=== PATIENT | female | born 1945 | race Caucasian/White ===

== ENCOUNTER → 2019-09-22 | Outpatient (REF) | LOC: M LAB LCGH 14:52 | PROVIDERS: ATTEND Physician Assistant | DX: L72.0 Epidermal cyst (principal) ==

== ENCOUNTER → 2020-05-24 | Outpatient (REF) | payer MEDICARE | LOC: M LAB REF 17:53 | PROVIDERS: ATTEND Physician Assistant | DX: D04.62 Carcinoma in situ of skin of left upper limb, including shoulder (principal) | CPT/HCPCS: 11102; 17000; 17003; 88305; G0463 ==

== ENCOUNTER → 2020-08-02 | Outpatient (REF) | payer MEDICARE | LOC: M LAB REF 17:26 | PROVIDERS: ATTEND Dermatology | DX: L90.5 Scar conditions and fibrosis of skin (principal) ==

== ENCOUNTER → 2020-11-27 | Outpatient (REF) | payer MEDICARE | LOC: M LAB REF 17:03 | PROVIDERS: ATTEND Physician Assistant | DX: C44.629 Squamous cell carcinoma of skin of left upper limb, including shoulder (principal) ==

== ENCOUNTER → 2021-01-06 | Outpatient (REF) | payer MEDICARE | LOC: M LAB REF 18:54 | PROVIDERS: ATTEND Dermatology | DX: C44.629 Squamous cell carcinoma of skin of left upper limb, including shoulder (principal); L90.5 Scar conditions and fibrosis of skin ==

== ENCOUNTER → 2021-05-02 | Outpatient (REF) | payer MEDICARE | LOC: M LAB REF 13:52 | PROVIDERS: ATTEND Physician Assistant | DX: D04.39 Carcinoma in situ of skin of other parts of face (principal); C44.729 Squamous cell carcinoma of skin of left lower limb, including hip ==

== ENCOUNTER → 2021-09-01 | Outpatient (REF) | payer MEDICARE | LOC: M LAB REF 14:06 | PROVIDERS: ATTEND Physician Assistant | DX: D04.62 Carcinoma in situ of skin of left upper limb, including shoulder (principal) | CPT/HCPCS: 11102; 17000; 17003; 88305; G0463 ==

== ENCOUNTER → 2022-03-12 | Outpatient (REF) | payer MEDICARE | LOC: M SFHCDERM 17:29 | PROVIDERS: ATTEND Physician Assistant | DX: C44.42 Squamous cell carcinoma of skin of scalp and neck (principal) ==

== ENCOUNTER → 2022-12-17 | Outpatient (REF) | payer MEDICARE | LOC: M SFHCDERM 17:08 | PROVIDERS: ATTEND Physician Assistant | DX: C44.320 Squamous cell carcinoma of skin of unspecified parts of face (principal) ==

== ENCOUNTER → 2024-03-09 | Outpatient (REF) | payer MEDICARE | LOC: M SFHCDERM 17:11 | PROVIDERS: ATTEND Physician Assistant | DX: D04.4 Carcinoma in situ of skin of scalp and neck (principal) ==